=== PATIENT | female | born 1965 | race Caucasian/White ===

== ENCOUNTER 2018-07-01 12:19 | Inpatient (IN) | payer OTHER ==
[2018-07-01 13:38] VITALS: BMI 27.4
--- NOTE | 2018-07-01 14:49 | PN ---
S Progress Note Note: pt was called at 2:50pm no show, no answer.
--- NOTE | 2018-07-01 17:25 | PN ---
S Progress Note Note: this chief writer attempted evaluation , pt refused stated she was tired and wanted to sleep , despite encouragement from staff and chief writer to participate in evaluation .
--- NOTE | 2018-07-01 21:08 | HP ---
CIWA Score Nausea/Vomitin-No Nausea/No Vomiting Muscle Tremors: 1-None Visible, but [place] Anxiety: 4-Mod. Anxious/Guarded Agitation: 4-Moderately Restless Paroxysmal Sweats: 4-Forehead w/Sweat Beads Orientation: 3-Disoriented Date>2 days Tacttile Disturbances: 0-None Auditory Disturbances: 0-None Visual Disturbances: 0-None Headache: 3-Moderate CIWA-Ar Total Score: 19 - Admission Criteria OASAS Guidelines: Admission for Medically Managed Detox: Requires at least one of the followin. CIWA greater than 12 2. Seizures within the past 24 hours 3. Delirium tremens within the past 24 hours 4. Hallucinations within the past 24 hours 5. Acute intervention needed for co occurring medical disorder 6. Acute intervention needed for co occurring psychiatric disorder 7. Severe withdrawal that cannot be handled at a lower level of care (continued vomiting, continued diarrhea, abnormal vital signs) requiring intravenous medication and/or fluids 8. Patient presents the following: CIWA greater than 12, Acute intervention needed for co-occurring med or psych disorder Admission Criteria Met: Admission criteria met Admission ROS [facility] Chief Complaint: C/O WORSENING WITHDRAWAL SX'S. SEEKING DETOX TXMENT Allergies/Adverse Reactions: Allergies Allergy/AdvReac Type Severity Reaction Status Date / Time No Known Allergies Allergy Verified 07/01/18 21:35 History of Present Illness: 52 Y.O. FEMALE WITH ALCOHOL AND COCAINE DEPENDENCE HERE SEEKING DETOX TXMENT. CLIENT WAS REFERRED BY [facility] AFTER PRESENTING THERE ON 06/29/2018 FOR TXMENT AND WAS DC SAME DAY DUE TO A FULL CENSUS. CONFIRMED BY [facility] DETOX. THIS IS CLIENTS FIRST TXMENT HERE REPORTS LAST INPATIENT TXMENT "A LONG TIME AGO". PRESENTS WITH WORSENING WITHDRAWAL SX'S. CIWA 19. REPORTS DRINKING ALCOHOL ON A DAILY BASIS BUT HAS BEEN DRINKING 3 TO 4 X WEEK FOR THE PAST 3 WEEKS. LAST DRINK 2 DAYS AGO. REPORTS LONGEST CLEAN TIME 7 YEARS. DENIES ANY RECENT CLEAN TIME. HOMELESS, UNEMPLOYED, DENIES LEGALS. PMHX- HTN, DM, ASTHMA, PSYCH- DEPRESSION, SCHIZOPHRENIA. CLIENT APPEARS TO BE A POOR HISTORIAN DOESNT SEEM TO RECALL MUCH AND APPEARS CONFUSED AT TIMES WITH HER ANSWERS. SEEMS TO BE AGREEING TO ALL QUESTIONS ASKED BY PROVIDER. SHE PRESENTS MALODOROUS, UNKEPT, SOILED, SWELLING OF FACE HANDS AND FEET WITH ASSOCAITED FLUSHING/ REDNESS, DRY MM,, RESTLESSNESS, SHAKES NOTED, AND AGITATED.UTOX + FOR BENZO STATES SHE WAS GIVEN A PILL WHILE AT [facility] NOT SURE WHAT IT WAS. WILL ADMIT TO DETOX ON AN AMENDED TAPER. Exam Limitations: Clinical Condition (PRESENTLY DISORIENTED AT TIME. POOR HISTORIAN) - Ebola screening Have you traveled outside of the country in the last 21 days: No Have you had contact with anyone from an Ebola affected area: No Have you been sick,other than usual withdrawal symptoms: No Do you have a fever: No - Review of Systems Constitutional: Malaise, Night Sweats EENT: reports: Dental Problems (EDENTULOUS), Other (DRY MUCOUS MEMEBRANES) Respiratory: reports: No Symptoms reported Cardiac: reports: No Symptoms Reported GI: reports: Abdominal cramping : reports: Incontinence Musculoskeletal: reports: Other (GENERAL MALAISE) Integumentary: reports: Flushing, Sweating Neuro: reports: No Symptoms reported Endocrine: reports: Other (REPORTED HX/O DM) Hematology: reports: No Symptoms Reported Psychiatric: reports: Orientated x3, Agitated, Anxious, Depressed Other Systems: Reviewed and Negative Patient History - Patient Medical History Hx Anemia: No Hx Asthma: Yes Hx Chronic Obstructive Pulmonary Disease (COPD): No Hx Cancer: No Hx Cardiac Disorders: No Hx Congestive Heart Failure: No Hx Hypertension: Yes Hx Hypercholesterolemia: No Hx Pacemaker: No HX Cerebrovascular Accident: No Hx Seizures: No Hx Dementia: No Hx Diabetes: Yes Hx Gastrointestinal Disorders: No Hx Liver Disease: No Hx Genitourinary Disorders: No Hx Sexually Transmitted Disorders: No Hx Renal Disease (ESRD): No Hx Thyroid Disease: No Hx Human Immunodeficiency Virus (HIV): No Hx Hepatitis C: No Hx Depression: Yes Hx Suicide Attempt: No Hx Bipolar Disorder: Yes Hx Schizophrenia: Yes Other Medical History: CLIENT DOES NOT RECALL NAME OF MEDS OR DOSEAGES - Patient Surgical History Past Surgical History: Yes Other Surgical History: SHE THINKS HER TUBES WHERE TIED AND ECTOPIC Anesthesia Reaction: No - PPD History Previous Implant?: Yes Documented Results: Negative w/o proof Implanted On Prior [facility] Admission?: No PPD to be Administered?: Yes - Reproductive History Patient is a Female of Child Bearing Age (11 -55 yrs old): Yes LMP comment: MENAPAUSE Patient : No [place] [facility] - Smoking Cessation Smoking history: Current every day smoker Have you smoked in the past 12 months: Yes Aproximately how many cigarettes per day: 20 Cigars Per Day: 0 Hx Chewing Tobacco Use: No Initiated information on smoking cessation: Yes 'Breaking Loose' booklet given: 07/01/18 - Substance & Tx. History Hx Alcohol Use: Yes Hx Substance Use: Yes Substance Use Type: Alcohol, Cocaine Hx Substance Use Treatment: Yes (DOES NOT RECALL) - Substances Abused BEER Route: Oral Frequency: Daily Amount used: 4-24 OZ Age of first use: 25 Date of Last Use: 06/29/18 COCAINE Route: Smoking Frequency: Daily Amount used: 4 VIALS Age of first use: 26 Date of Last Use: 06/30/18 Family Disease History - Family Disease History Family Disease History: Diabetes: Mother (DEPRESSION), Heart Disease: Mother Admission Physical Exam [facility] - Vital Signs Vital Signs: Vital Signs - 24 hr 07/01/18 13:29 Temperature 97.1 F L Pulse Rate 102 H Respiratory 18 Rate Blood Pressure 123/58 L - Physical General Appearance: Yes: Mild Distress, Tremorous, Irritable, Sweating, Anxious , Other (MALODUROUS, UNKEPT , SOILED) HEENTM: Yes: EOMI, Normocephalic, Normal Voice, ELSA, Pharynx Normal, Nasal Congestion, Other (EDENTULOUS DRY MUCOUS MEMBRANES) Respiratory: Yes: Chest Non-Tender, No Respiratory Distress, Other (COARSE BREATH SOUNDS) Neck: Yes: No masses,lesions,Nodules, Supple, Trachea in good position Breast: Yes: Breast Exam Deferred Cardiology: Yes: Regular Rhythm, S1, S2, Tachycardia Abdominal: Yes: Non Tender, Soft, Increased Bowel Sounds Genitourinary: Yes: Incontinient (REPORTED) Back: Yes: Normal Inspection Musculoskeletal: Yes: Gait Steady, Joint Stiffness Extremities: Yes: Non-Tender, Tremors, Swelling (BLOATING OF FACE HANDS AND LEGS WITH REDNESS) Neurological: Yes: Alert, Disoriented (AT TIMES), Depressed Affect Integumentary: Yes: Dry, Warm, Other (REDNESS FROM DEHYDRATION WITH POOR SKIN TUGOR) Lymphatic: Yes: Within Normal Limits - Diagnostic (1) Alcohol dependence with uncomplicated withdrawal Current Visit: Yes Status: Acute (2) Cocaine dependence, uncomplicated Current Visit: Yes Status: Acute (3) Nicotine dependence Current Visit: Yes Status: Chronic Qualifiers: Nicotine product type: cigarettes Substance use status: uncomplicated Qualified Code(s): F17.210 - Nicotine dependence, cigarettes, uncomplicated (4) At risk for dehydration due to poor fluid intake Current Visit: Yes Status: Acute (5) Poor historian Current Visit: Yes Status: Acute (6) Asthma Current Visit: Yes Status: Chronic Qualifiers: Asthma severity: mild Asthma persistence: intermittent Asthma complication type: uncomplicated Qualified Code(s): J45.20 - Mild intermittent asthma, uncomplicated (7) Diabetes Current Visit: Yes Status: Chronic Qualifiers: Diabetes mellitus type: type 2 (8) HTN (hypertension) Current Visit: Yes Status: Chronic Qualifiers: Hypertension type: essential hypertension Qualified Code(s): I10 - Essential (primary) hypertension (9) Homeless Current Visit: Yes Status: Acute (10) Dry mucous membranes Current Visit: Yes Status: Acute Cleared for Admission BHS - Detox or Rehab S Level of Care: Medically Managed Detox Regimen/Protocol: Librium Claeared for Rehab Admission: No BHS Breath Alcohol Content Breath Alcohol Content: 0 Urine Pregancy Test - Result Urine Test Results: Negative- NO Line Present Urine Drug Screen - Results Drug Screen Negative: No Urine Drug Screen Results: RACHELL-Cocaine, BZO-Benzodiazepines Inpatient Rehab Admission - Rehab Decision to Admit Inpatient rehab admission?: No
[2018-07-01] MEDS ORDERED: MENTHOL/PHENOL 1 EACH UD MM PRN (21:18)
[2018-07-01] MEDS ORDERED: MAGNESIUM CITRATE 300 ML BOTTLE PO PRN (21:18)
[2018-07-01] MEDS ORDERED: IBUPROFEN 400 MG TABLET (FP) PO PRN (21:18)
[2018-07-01] MEDS ORDERED: NICOTINE POLACRILEX 2 MG GUM BUC PRN (21:18)
[2018-07-01] MEDS ORDERED: MAGNESIUM HYDROX 2400MG/30ML ORAL SUSPENSION 30 ML CUP PO PRN (21:18)
[2018-07-01] MEDS ORDERED: guaiFENesin/D-METHORPHAN HB 10 ML UNIT-DOSE CUPS PO PRN (21:18)
[2018-07-01] MEDS ORDERED: LOPERAMIDE HCL 2 MG CAPSULE PO PRN (21:18)
[2018-07-01] MEDS ORDERED: P-EPHED 60MG/TRIPROLIDI 2.5MG TABLET PO PRN (21:18)
[2018-07-01] MEDS ORDERED: MAG HYDROX/AL HYDROX/SIMETH 30 ML UNIT-DOSE CUP PO PRN (21:18)
[2018-07-01] MEDS ORDERED: hydrOXYzine PAMOATE 50 MG CAPSULE (FP) PO PRN (21:18)
[2018-07-01] MEDS ORDERED: ACETAMINOPHEN 325 MG TABLET (FP) PO PRN (21:18)
[2018-07-01] MEDS ORDERED: chlordiazePOXIDE HCL 25 MG CAPSULE PO PRN (21:18)
[2018-07-01] MEDS ORDERED: ALBUTEROL SO4 0.083% IH SOL 2.5 MG/3 ML VIAL.NEB. NEB PRN (21:20)
[2018-07-01] MEDS ORDERED: MELATONIN 5 MG TABLETS PO PRN (22:00)
[2018-07-01] MEDS: THIAMINE HCL 100 MG TABLET (FP) PO SCH (23:03)
[2018-07-01] MEDS: chlordiazePOXIDE HCL 25 MG CAPSULE PO SCH (23:06)
[2018-07-02] MEDS: chlordiazePOXIDE HCL 25 MG CAPSULE PO SCH ×4 (05:21→22:37)
--- NOTE | 2018-07-02 09:28 | CONSULT ---
[facility] Psychiatric Consult - Data Date of interview: 07/02/18 Admission source: [facility] Identifying data: This 51 yo H single female mother of 33 yo daughter,homeless, supported by [facility] admitted for Alcohol,Cocaine dependence. Substance Abuse History: Reports drinking since 25 yo,4 24 oz beer,cocaine/ crack since 25 yo,4 vials daily.LOngest abstinence 7 years. Medical History: HTN,DM,BA. Psychiatric History: Patient is poor historian.Reports first psychiatric hospitalizations at 25 yo due to psychotic episode.Patient was [facility], with schizophrenia.No recollecion of psychotropic medications at that time.Reports no suicidal attempts.Patient is under care of Act team due to poor compliance with treatemnt.Current medications:Depakote 500 mg po nbid,Risperidone 2 mg po bid. Physical/Sexual Abuse/Trauma History: Patient denies. Mental Status Exam - Mental Status Exam Alert and Oriented to: Time, Place, Person Cognitive Function: Grossly Intact Patient Appearance: Unkempt Mood: Sad, Withdrawn, Anxious Affect: Mood Congruent, Labile Patient Behavior: Cooperative Speech Pattern: Clear Voice Loudness: Normal Thought Process: Goal Oriented Thought Disorder: Being Controlled Hallucinations: Denies Suicidal Ideation: Denies Homicidal Ideation: Denies Insight/Judgement: Fair Sleep: Difficulty falling asleep Appetite: Fair Muscle strength/Tone: Normal Gait/Station: Normal Psychiatric Findings - Problem List ([place] 1, 2,3) (1) Cocaine dependence, uncomplicated Current Visit: Yes Status: Chronic (2) Asthma Current Visit: Yes Status: Chronic Qualifiers: Asthma severity: mild Asthma persistence: intermittent Asthma complication type: uncomplicated Qualified Code(s): J45.20 - Mild intermittent asthma, uncomplicated (3) Diabetes Current Visit: Yes Status: Chronic Qualifiers: Diabetes mellitus type: type 2 (4) Alcohol dependence Current Visit: Yes Status: Acute (5) Schizophrenia Current Visit: Yes Status: Chronic (6) HTN (hypertension) Current Visit: Yes Status: Chronic Qualifiers: Hypertension type: essential hypertension Qualified Code(s): I10 - Essential (primary) hypertension (7) Nicotine dependence Current Visit: Yes Status: Chronic Qualifiers: Nicotine product type: cigarettes Substance use status: uncomplicated Qualified Code(s): F17.210 - Nicotine dependence, cigarettes, uncomplicated - Initial Treatment Plan Initial Treatment Plan: Continue current medicationd as per plan.
[2018-07-02] MEDS: PRENATAL VITAMINS W/ FOLIC ACID TABLET (FP) PO SCH (10:04)
[2018-07-02] MEDS: NICOTINE 21 MG/24 HOURS TOPICAL PATCH TD SCH (10:05)
[2018-07-02 11:16] LABS: HEMATOCRIT 34.8 % (32.4-45.2); HEMOGLOBIN 11.7 GM/dL (10.7-15.3); MCH 29.8 pg (25.7-33.7); MCHC 33.5 g/dl (32.0-36.0); MEAN CELL VOLUME 88.9 fl (80-96); MEAN PLT VOLUME 9.3 fl (7.5-11.1); PLATELET COUNT 210 K/MM3 (134-434); RBC 3.91 M/mm3 (3.60-5.2); RDW 13.3 % (11.6-15.6); WHITE BLOOD COUNT 7.3 K/mm3 (4.0-10.0)
[2018-07-02] MEDS: risperiDONE 2 MG TABLET PO SCH ×2 (12:01→22:37)
[2018-07-02] MEDS: DIVALPROEX NA *ER* EXTEND REL 500 MG TABLET.SA (FP) PO SCH ×2 (12:02→22:37)
[2018-07-02 12:09] LABS: ALBUMIN 2.9 g/dl (3.4-5.0); ALK PHOS 73 U/L (45-117); ANION GAP 7 MMOL/L (8-16); BILIRUBIN,TOTAL 0.3 mg/dL (0.2-1); BLOOD UREA NITROGEN 25 mg/dL (7-18); CALCIUM 8.4 mg/dL (8.5-10.1); CHLORIDE 108 mmol/L (98-107); CO2 28 mmol/L (21-32); CREATININE 0.6 mg/dL (0.55-1.3); GLUCOSE,RANDOM 97 mg/dL (74-106); POTASSIUM 3.7 mmol/L (3.5-5.1); SGOT/AST 18 U/L (15-37); SGPT/ALT 15 U/L (13-61); SODIUM 144 mmol/L (136-145); TOT PROT 6.4 g/dl (6.4-8.2)
--- NOTE | 2018-07-02 18:08 | PN ---
[facility] CIWA - CIWA Score Nausea/Vomitin-No Nausea/No Vomiting Muscle Tremors: None Anxiety: 5 Agitation: 0-Normal Activity Paroxysmal Sweats: No Perspiration Orientation: 0-Oriented Tacttile Disturbances: 2-Mild Itch/Numbness/Burn Auditory Disturbances: 2-Mild Harshness/Frighten Visual Disturbances: 2-Mild Sensitivity Headache: 0-None Present CIWA-Ar Total Score: 11 BHS Progress Note (SOAP) Subjective: Body Aches, Anxious, Fatigue, Constipation. Objective: PATIENT A & O X 3. IN NO ACUTE DISTRESS. 07/02/18 18:07 Vital Signs Temperature 99.4 F 07/02/18 17:49 Pulse Rate 97 H 07/02/18 17:49 Respiratory Rate 16 07/02/18 17:49 Blood Pressure 125/73 07/02/18 17:49 O2 Sat by Pulse Oximetry (%) Laboratory Tests 07/02/18 07/02/18 07/02/18 07:00 07:00 07:00 WBC 7.3 RBC 3.91 Hgb 11.7 Hct 34.8 MCV 88.9 MCH 29.8 MCHC 33.5 RDW 13.3 Plt Count 210 MPV 9.3 Sodium 144 Potassium 3.7 Chloride 108 H Carbon Dioxide 28 Anion Gap 7 L BUN 25 H Creatinine 0.6 Creat Clearance w eGFR > 60 POC Glucometer Random Glucose 97 Calcium 8.4 L Total Bilirubin 0.3 AST 18 ALT 15 Alkaline Phosphatase 73 Total Protein 6.4 Albumin 2.9 L RPR Titer Nonreactive 07/02/18 07:37 WBC RBC Hgb Hct MCV MCH MCHC RDW Plt Count MPV Sodium Potassium Chloride Carbon Dioxide Anion Gap BUN Creatinine Creat Clearance w eGFR POC Glucometer 86 Random Glucose Calcium Total Bilirubin AST ALT Alkaline Phosphatase Total Protein Albumin RPR Titer LABS NOTED. Assessment: 07/02/18 18:08 WITHDRAWAL SYMPTOMS. Plan: CONTINUE DETOX. INCREASE DAILY PO FLUID INTAKE. PRN MOM PO FOR CONSTIPATION.
[2018-07-02 19:07] LABS: URINE APPEARANCE SLCLOUDY; URINE BILIRUBIN NEGATIVE (<2.0 mg/dL); URINE COLOR AMBER; URINE GLUCOSE (UA) NEGATIVE (NEGATIVE); URINE KETONE TRACE (NEGATIVE); URINE LEUK ESTERASE 1+ (NEGATIVE); URINE NITRITE NEGATIVE (NEGATIVE); URINE PROTEIN NEGATIVE (NEGATIVE)
[2018-07-02 19:12] LABS: EPI CELLS RARE /HPF (FEW); URINE MUCUS FEW
[2018-07-02] MEDS: THIAMINE HCL 100 MG TABLET (FP) PO SCH (22:37)
[2018-07-03] MEDS: chlordiazePOXIDE HCL 25 MG CAPSULE PO SCH ×3 (06:00→17:28)
[2018-07-03] MEDS: NICOTINE 21 MG/24 HOURS TOPICAL PATCH TD SCH (10:37)
[2018-07-03] MEDS: DIVALPROEX NA *ER* EXTEND REL 500 MG TABLET.SA (FP) PO SCH ×2 (10:38→22:40)
[2018-07-03] MEDS: risperiDONE 2 MG TABLET PO SCH ×2 (10:38→22:40)
[2018-07-03] MEDS: PRENATAL VITAMINS W/ FOLIC ACID TABLET (FP) PO SCH (10:38)
--- NOTE | 2018-07-03 15:56 | PN ---
S CIWA - CIWA Score Nausea/Vomitin-No Nausea/No Vomiting Muscle Tremors: None Anxiety: 3 Agitation: 0-Normal Activity Paroxysmal Sweats: No Perspiration Orientation: 0-Oriented Tacttile Disturbances: 1-Very Mild Itch/Numbness Auditory Disturbances: 1-Very Mild Visual Disturbances: 3-Moderate Sensitivity Headache: 0-None Present CIWA-Ar Total Score: 8 BHS Progress Note (SOAP) Subjective: Body Aches, Anxious, Fatigue, Constipation. Objective: PATIENT A & O X 3. IN NO ACUTE DISTRESS. 07/03/18 15:54 Vital Signs Temperature 97.4 F L 07/03/18 14:51 Pulse Rate 103 H 07/03/18 14:51 Respiratory Rate 20 07/03/18 14:51 Blood Pressure 138/84 07/03/18 14:51 O2 Sat by Pulse Oximetry (%) Laboratory Tests 07/02/18 07/02/18 07/02/18 07:00 07:00 07:00 WBC 7.3 RBC 3.91 Hgb 11.7 Hct 34.8 MCV 88.9 MCH 29.8 MCHC 33.5 RDW 13.3 Plt Count 210 MPV 9.3 Sodium 144 Potassium 3.7 Chloride 108 H Carbon Dioxide 28 Anion Gap 7 L BUN 25 H Creatinine 0.6 Creat Clearance w eGFR > 60 POC Glucometer Random Glucose 97 Calcium 8.4 L Total Bilirubin 0.3 AST 18 ALT 15 Alkaline Phosphatase 73 Total Protein 6.4 Albumin 2.9 L Urine Color Urine Appearance Urine pH Ur Specific [place] Urine Protein Urine Glucose (UA) Urine Ketones Urine Blood Urine Nitrite Urine Bilirubin Urine Urobilinogen Ur Leukocyte Esterase Urine WBC (Auto) Urine RBC (Auto) Ur Epithelial Cells Urine Mucus RPR Titer Nonreactive 07/02/18 07/02/18 07:37 12:55 WBC RBC Hgb Hct MCV MCH MCHC RDW Plt Count MPV Sodium Potassium Chloride Carbon Dioxide Anion Gap BUN Creatinine Creat Clearance w eGFR POC Glucometer 86 Random Glucose Calcium Total Bilirubin AST ALT Alkaline Phosphatase Total Protein Albumin Urine Color Cheryl Urine Appearance Slcloudy Urine pH 6.0 Ur Specific [place] 1.033 Urine Protein Negative Urine Glucose (UA) Negative Urine Ketones Trace H Urine Blood Negative Urine Nitrite Negative Urine Bilirubin Negative Urine Urobilinogen 2.0 H Ur Leukocyte Esterase 1+ H Urine WBC (Auto) 2 Urine RBC (Auto) 28 Ur Epithelial Cells Rare Urine Mucus Few RPR Titer LABS NOTED. Assessment: 07/03/18 15:54 WITHDRAWAL SYMPTOMS. Plan: CONTINUE DETOX. INCREASE DAILY PO FLUID INTAKE. ENCOURAGE AMBULATION. PRN MOM PO FOR CONSTIPATION.
[2018-07-03] MEDS: chlordiazePOXIDE 5 MG CAPSULE PO SCH (22:39)
[2018-07-03] MEDS: THIAMINE HCL 100 MG TABLET (FP) PO SCH (22:39)
[2018-07-04] MEDS: chlordiazePOXIDE 5 MG CAPSULE PO SCH ×3 (06:19→16:50)
[2018-07-04] MEDS: risperiDONE 2 MG TABLET PO SCH ×2 (10:20→22:20)
[2018-07-04] MEDS: PRENATAL VITAMINS W/ FOLIC ACID TABLET (FP) PO SCH (10:20)
[2018-07-04] MEDS: DIVALPROEX NA *ER* EXTEND REL 500 MG TABLET.SA (FP) PO SCH ×2 (10:20→22:20)
[2018-07-04] MEDS: NICOTINE 21 MG/24 HOURS TOPICAL PATCH TD SCH (10:21)
--- NOTE | 2018-07-04 10:28 | PN ---
S CIWA - CIWA Score Nausea/Vomitin-No Nausea/No Vomiting Muscle Tremors: 1-None Visible, but [place] Anxiety: 1-Mildly Anxious Agitation: 1-Slight > Activity Paroxysmal Sweats: 1-Minimal Palms Moist Orientation: 0-Oriented Tacttile Disturbances: 0-None Auditory Disturbances: 0-None Visual Disturbances: 0-None Headache: 0-None Present CIWA-Ar Total Score: 4 BHS Progress Note (SOAP) Subjective: feeling better less tremor mild sweating social with peers in day room Objective: 07/04/18 10:29 Vital Signs Temperature 99.4 F 07/04/18 09:45 Pulse Rate 71 07/04/18 09:45 Respiratory Rate 18 07/04/18 09:45 Blood Pressure 110/67 07/04/18 09:45 O2 Sat by Pulse Oximetry (%) Laboratory Last Values WBC 7.3 K/mm3 (4.0-10.0) 07/02/18 07:00 RBC 3.91 M/mm3 (3.60-5.2) 07/02/18 07:00 Hgb 11.7 GM/dL (10.7-15.3) 07/02/18 07:00 Hct 34.8 % (32.4-45.2) 07/02/18 07:00 MCV 88.9 fl (80-96) 07/02/18 07:00 MCH 29.8 pg (25.7-33.7) 07/02/18 07:00 MCHC 33.5 g/dl (32.0-36.0) 07/02/18 07:00 RDW 13.3 % (11.6-15.6) 07/02/18 07:00 Plt Count 210 K/MM3 (134-434) 07/02/18 07:00 MPV 9.3 fl (7.5-11.1) 07/02/18 07:00 Sodium 144 mmol/L (136-145) 07/02/18 07:00 Potassium 3.7 mmol/L (3.5-5.1) 07/02/18 07:00 Chloride 108 mmol/L (98-107) H 07/02/18 07:00 Carbon Dioxide 28 mmol/L (21-32) 07/02/18 07:00 Anion Gap 7 MMOL/L (8-16) L 07/02/18 07:00 BUN 25 mg/dL (7-18) H 07/02/18 07:00 Creatinine 0.6 mg/dL (0.55-1.3) 07/02/18 07:00 Creat Clearance w eGFR > 60 (>60) 07/02/18 07:00 POC Glucometer 108 UNITS (80-120) 07/04/18 06:49 Random Glucose 97 mg/dL (74-106) 07/02/18 07:00 Calcium 8.4 mg/dL (8.5-10.1) L 07/02/18 07:00 Total Bilirubin 0.3 mg/dL (0.2-1) 07/02/18 07:00 AST 18 U/L (15-37) 07/02/18 07:00 ALT 15 U/L (13-61) 07/02/18 07:00 Alkaline Phosphatase 73 U/L (45-117) 07/02/18 07:00 Total Protein 6.4 g/dl (6.4-8.2) 07/02/18 07:00 Albumin 2.9 g/dl (3.4-5.0) L 07/02/18 07:00 Urine Color Cheryl 07/02/18 12:55 Urine Appearance Slcloudy 07/02/18 12:55 Urine pH 6.0 (5.0-8.0) 07/02/18 12:55 Ur Specific [place] 1.033 (1.010-1.035) 07/02/18 12:55 Urine Protein Negative (NEGATIVE) 07/02/18 12:55 Urine Glucose (UA) Negative (NEGATIVE) 07/02/18 12:55 Urine Ketones Trace (NEGATIVE) H 07/02/18 12:55 Urine Blood Negative (NEGATIVE) 07/02/18 12:55 Urine Nitrite Negative (NEGATIVE) 07/02/18 12:55 Urine Bilirubin Negative (<2.0 mg/dL) 07/02/18 12:55 Urine Urobilinogen 2.0 mg/dL (0.2-1.0) H 07/02/18 12:55 Ur Leukocyte Esterase 1+ (NEGATIVE) H 07/02/18 12:55 Urine WBC (Auto) 2 /hpf (3-5) 07/02/18 12:55 Urine RBC (Auto) 28 /hpf (0-3) 07/02/18 12:55 Ur Epithelial Cells Rare /HPF (FEW) 07/02/18 12:55 Urine Mucus Few 07/02/18 12:55 RPR Titer Nonreactive (NONREACTIVE) 07/02/18 07:00 lab noted asymptomatic uti encourage oral fluid Assessment: 07/04/18 10:30 mild withdrawal sx Plan: continue detox
[2018-07-04] MEDS ORDERED: ENALAPRIL MALEATE 2.5 MG TABLET (FP) PO SCH (10:45)
[2018-07-04] MEDS ORDERED: ENALAPRIL MALEATE 5 MG TABLET (FP) PO SCH (10:45)
--- NOTE | 2018-07-04 12:40 | EKG ---
Test Reason : Blood Pressure : / mmHG Vent. Rate : 103 BPM Atrial Rate : 103 BPM P-R Int : 130 ms QRS Dur : 088 ms QT Int : 338 ms P-R-T Axes : 066 033 027 degrees QTc Int : 442 ms SINUS TACHYCARDIA NONSPECIFIC T WAVE ABNORMALITY ABNORMAL ECG NO PREVIOUS ECGS AVAILABLE Confirmed by BENNETT MONTANEZ MD ([id number]) on 07/04/2018 12:39:51 PM Referred By: Confirmed By:BENNETT MONTANEZ MD
[2018-07-04] MEDS: metFORMIN HCL 500 MG TABLET (FP) PO SCH ×2 (14:11→16:54)
[2018-07-04] MEDS: chlordiazePOXIDE HCL 10 MG CAPSULE PO SCH (22:20)
[2018-07-04] MEDS: THIAMINE HCL 100 MG TABLET (FP) PO SCH (22:20)
[2018-07-05] MEDS: chlordiazePOXIDE HCL 10 MG CAPSULE PO SCH (05:07)
[2018-07-05] MEDS: metFORMIN HCL 500 MG TABLET (FP) PO SCH (07:08)
[2018-07-05 09:16] VITALS: BP 148/78; PULSE 102; TEMP 97.1
--- NOTE | 2018-07-05 11:35 | DS ---
[facility] Detox Discharge Summary Admission Date: 07/01/18 Discharge Date: 07/05/18 - History Present History: Alcohol Dependence Additional Comments: 52 years old female admitted on 07/03 18 for alcohol withdrawal stabilization completed alcohol detox regimen aftercare [facility] Physical Exam Results Vital Signs: Vital Signs Temperature 97.1 F L 07/05/18 09:15 Pulse Rate 102 H 07/05/18 09:15 Respiratory Rate 18 07/05/18 09:15 Blood Pressure 148/78 07/05/18 09:15 O2 Sat by Pulse Oximetry (%) Pertinent Admission Physical Exam Findings: alcohol withdrawal sx Laboratory Last Values WBC 7.3 K/mm3 (4.0-10.0) 07/02/18 07:00 RBC 3.91 M/mm3 (3.60-5.2) 07/02/18 07:00 Hgb 11.7 GM/dL (10.7-15.3) 07/02/18 07:00 Hct 34.8 % (32.4-45.2) 07/02/18 07:00 MCV 88.9 fl (80-96) 07/02/18 07:00 MCH 29.8 pg (25.7-33.7) 07/02/18 07:00 MCHC 33.5 g/dl (32.0-36.0) 07/02/18 07:00 RDW 13.3 % (11.6-15.6) 07/02/18 07:00 Plt Count 210 K/MM3 (134-434) 07/02/18 07:00 MPV 9.3 fl (7.5-11.1) 07/02/18 07:00 Sodium 144 mmol/L (136-145) 07/02/18 07:00 Potassium 3.7 mmol/L (3.5-5.1) 07/02/18 07:00 Chloride 108 mmol/L (98-107) H 07/02/18 07:00 Carbon Dioxide 28 mmol/L (21-32) 07/02/18 07:00 Anion Gap 7 MMOL/L (8-16) L 07/02/18 07:00 BUN 25 mg/dL (7-18) H 07/02/18 07:00 Creatinine 0.6 mg/dL (0.55-1.3) 07/02/18 07:00 Creat Clearance w eGFR > 60 (>60) 07/02/18 07:00 POC Glucometer 89 UNITS (80-120) 07/05/18 05:07 Random Glucose 97 mg/dL (74-106) 07/02/18 07:00 Calcium 8.4 mg/dL (8.5-10.1) L 07/02/18 07:00 Total Bilirubin 0.3 mg/dL (0.2-1) 07/02/18 07:00 AST 18 U/L (15-37) 07/02/18 07:00 ALT 15 U/L (13-61) 07/02/18 07:00 Alkaline Phosphatase 73 U/L (45-117) 07/02/18 07:00 Total Protein 6.4 g/dl (6.4-8.2) 07/02/18 07:00 Albumin 2.9 g/dl (3.4-5.0) L 07/02/18 07:00 Urine Color Cheryl 07/02/18 12:55 Urine Appearance Slcloudy 07/02/18 12:55 Urine pH 6.0 (5.0-8.0) 07/02/18 12:55 Ur Specific [place] 1.033 (1.010-1.035) 07/02/18 12:55 Urine Protein Negative (NEGATIVE) 07/02/18 12:55 Urine Glucose (UA) Negative (NEGATIVE) 07/02/18 12:55 Urine Ketones Trace (NEGATIVE) H 07/02/18 12:55 Urine Blood Negative (NEGATIVE) 07/02/18 12:55 Urine Nitrite Negative (NEGATIVE) 07/02/18 12:55 Urine Bilirubin Negative (<2.0 mg/dL) 07/02/18 12:55 Urine Urobilinogen 2.0 mg/dL (0.2-1.0) H 07/02/18 12:55 Ur Leukocyte Esterase 1+ (NEGATIVE) H 07/02/18 12:55 Urine WBC (Auto) 2 /hpf (3-5) 07/02/18 12:55 Urine RBC (Auto) 28 /hpf (0-3) 07/02/18 12:55 Ur Epithelial Cells Rare /HPF (FEW) 07/02/18 12:55 Urine Mucus Few 07/02/18 12:55 RPR Titer Nonreactive (NONREACTIVE) 07/02/18 07:00 lab noted - Treatment Hospital Course: Detox Protocol Followed, Detoxed Safely, Responded well, Discharged Condition Good, Rehab Referral Accepted Patient has Accepted a Rehab Referral to: [facility] - Medication Discharge Medications: Ambulatory Orders Divalproex *ER* [Depakote *ER* -] 500 mg PO BID 07/01/18 Risperidone 2 mg PO BID 07/01/18 Enalapril Maleate [Vasotec -] 2.5 mg PO DAILY #14 tablet 07/05/18 metFORMIN HCL [Glucophage -] 500 mg PO BID #30 tablet 07/05/18 - Diagnosis (1) Alcohol dependence with uncomplicated withdrawal Status: Acute (2) Asthma Status: Chronic Qualifiers: Asthma severity: mild Asthma persistence: intermittent Asthma complication type: uncomplicated Qualified Code(s): J45.20 - Mild intermittent asthma, uncomplicated (3) Diabetes Status: Chronic Qualifiers: Diabetes mellitus type: type 2 Diabetes mellitus usp insulin use: without prepress specialist use Diabetes mellitus complication status: with unspecified complications Qualified Code(s): E11.8 - Type 2 diabetes mellitus with unspecified complications (4) HTN (hypertension) Status: Chronic Qualifiers: Hypertension type: essential hypertension Qualified Code(s): I10 - Essential (primary) hypertension (5) Nicotine dependence Status: Acute Qualifiers: Nicotine product type: cigarettes Substance use status: in withdrawal Qualified Code(s): F17.213 - Nicotine dependence, cigarettes, with withdrawal - AMA Did Patient Leave Against Medical Advice: No
--- NOTE | 2018-07-10 22:20 | EKG ---
Test Reason : Blood Pressure : / mmHG Vent. Rate : 090 BPM Atrial Rate : 090 BPM P-R Int : 132 ms QRS Dur : 092 ms QT Int : 364 ms P-R-T Axes : 061 022 025 degrees QTc Int : 445 ms NORMAL SINUS RHYTHM NORMAL ECG WHEN COMPARED WITH ECG OF 01-JUL-2018 22:58, T WAVE VARIATION Confirmed by LUIS CARLOS MARTINO MD ([id number]) on 07/10/2018 10:19:58 PM Referred By: HILDA HEADLEY Confirmed By:LUIS CARLOS MARTINO MD
== END 2018-07-05 09:21 | disposition home or self-care (01) | DRG 774 ==
LOC: YASAS 12:19 → Y3N 21:13
PROVIDERS: ADMIT Surgery; ATTEND Surgery
PROC: HZ2ZZZZ Detoxification Services for Substance Abuse Treatment (ICD-10-PCS; principal; 2018-07-01)
DX: F10.230 Alcohol dependence with withdrawal, uncomplicated (principal); F14.20 Cocaine dependence, uncomplicated; F17.213 Nicotine dependence, cigarettes, with withdrawal; F20.9 Schizophrenia, unspecified; I10 Essential (primary) hypertension; J45.20 Mild intermittent asthma, uncomplicated; E11.8 Type 2 diabetes mellitus with unspecified complications; R00.0 Tachycardia, unspecified; R63.8 Other symptoms and signs concerning food and fluid intake; R68.2 Dry mouth, unspecified; Z59.0 Homelessness; Z79.84 Long term (current) use of oral hypoglycemic drugs
CPT/HCPCS: 36415; 80053; 81003; 81015; 82962; 85027; 86593; 93005; 93010